=== PATIENT | female | born 1985 | race Caucasian/White ===

== ENCOUNTER 2017-01-31 14:26 | Emergency (ER) | payer SELFPAY ==
[~2017-01-31] VITALS: Ht 165.1 cm; Wt 50.0 kg
[~2017-01-31 14:26] MED LIST: CIPR500T4 PO
[2017-01-31 14:35] VITALS: BP 103/79; PULSE 78; RESP 18; TEMP 98.2; O2SAT 100
[2017-01-31] MEDS ORDERED: HYDR-3533 PO (14:47)
--- NOTE | 2017-01-31 14:52 | PD ---
HPI Chief Complaint: Dizziness Time Seen by Provider: 14:40 Travel History International Travel<30 days: No Contact w/Intl Traveler<30days: No Traveled to known affect area: No History of Present Illness HPI This 31-year-old female is complaining of lower abdominal pain. She's had some vaginal discharge and pain with urination. Her last period was January 09. She has been 4 times and has 4 children PFSH Past Medical History Anxiety: Yes (panick attacks) Depression: Yes Cancer: No Cardiovascular Problems: No Diminished Hearing: No Endocrine: No Gastrointestinal Disorders: No Genitourinary: No Immune Disorder: No Implanted Vascular Access Dvce: No Musculoskeletal: No Neurologic: No Psychiatric: Yes Reproductive: No Respiratory: No Immunizations Current: Yes ?: Unknown : 4 Para: 4 Miscarriage: 1 Past Surgical History Tonsillectomy: Yes Other Surgery: No Social History Alcohol Use: Yes (1-2 wk) Tobacco Use: Yes (1 ppd) Substance Use: No Allergies-Medications (Allergen,Severity, Reaction): Coded Allergies: Morphine (Verified Allergy, Severe, Rash, 01/31/17) Reported Meds & Prescriptions Reported Meds & Active Scripts Active Reported Lortab (Hydrocodone-Acetaminophen) 5-325 Mg Tab 0.25 Tab PO DAILY Review of Systems General / Constitutional: No: Fever, Chills Eyes: No: Diploplia, Blurred Vision HENT: No: Headaches, Vertigo Cardiovascular: No: Chest Pain or Discomfort, Palpitations Respiratory: No: Cough, Shortness of Breath Gastrointestinal: Positive: Nausea Genitourinary: Positive: Frequency, Dysuria Musculoskeletal: No: Myalgias Skin: No Rash Neurologic: No: Weakness Physical Exam Narrative GENERAL: Well-developed female SKIN: Focused skin assessment warm/dry. HEAD: Atraumatic. Normocephalic. EYES: Pupils equal and round. No scleral icterus. No injection or drainage. ENT: No nasal bleeding or discharge. Mucous membranes pink and moist. NECK: Trachea midline. No JVD. CARDIOVASCULAR: Regular rate and rhythm. No murmur appreciated. RESPIRATORY: No accessory muscle use. Clear to auscultation. Breath sounds equal bilaterally. GASTROINTESTINAL: Abdomen soft, non-tender, nondistended. Hepatic and splenic margins not palpable. Pelvic: There is some slight whitish discharge. There is pain with movement of the cervix. There are no adnexal masses MUSCULOSKELETAL: No obvious deformities. No clubbing. No cyanosis. No edema. NEUROLOGICAL: Awake and alert. No obvious cranial nerve deficits. Motor grossly within normal limits. Normal speech. PSYCHIATRIC: Appropriate mood and affect; insight and judgment normal. Data Data Last Documented VS Vital Signs Date Time Temp Pulse Resp B/P Pulse Ox O2 Delivery O2 Flow Rate FiO2 01/31/17 14:35 98.2 78 18 103/79 100 Orders Gc And Chlamydia Pcr (01/31/17 14:48) Wet Prep Profile (01/31/17 14:48) Urinalysis - C+S If Indicated (01/31/17 14:48) Ed Urine Pregnancytest Poc (01/31/17 14:48) Azithromycin Powd Pack (Zithromax Powd P (01/31/17 15:45) Rocephin 250mg Vial Im X 1 (01/31/17 15:45) Lidocaine 1% Inj (50 Ml) (Xylocaine 1% I (01/31/17 15:45) Labs Laboratory Tests Test 01/31/17 01/31/17 14:50 15:00 Urine Color YELLOW Urine Turbidity CLEAR Urine pH 5.5 Urine Specific [place] 1.029 Urine Protein TRACE mg/dL Urine Glucose (UA) NEG mg/dL Urine Ketones TRACE mg/dL Urine Occult Blood NEG Urine Nitrite POS Urine Bilirubin NEG Urine Leukocyte Esterase TRACE Urine WBC 6-8 /hpf Urine Squamous Epithelial > 8 /hpf Cells Urine Bacteria RARE /hpf Urine Mucus MANY /lpf Microscopic Urinalysis Comment CULT NOT INDICATED Clue Cells (Wet Prep) NONE SEEN Vaginal Trichomonas (Wet Prep) NONE SEEN Vaginal Yeast (Wet Prep) NONE SEEN MDM Medical Decision Making Medical Screen Exam Complete: Yes Emergency Medical Condition: Yes Medical Record Reviewed: Yes Differential Diagnosis Differential includes , UTI, cervicitis Narrative Course test is negative. Urine is equivocal for UTI. She'll be given Rocephin and Zithromax for cervicitis Diagnosis Primary Impression: Cervicitis Disposition: 01 DISCHARGE HOME Condition: Stable Ollie Ortez MD Jan 31, 2017 14:52
[2017-01-31 15:23] LABS: BLOOD, URINE NEG (NEG); GLUCOSE,URINE NEG (NEG); KETONE, URINE TRACE mg/dL (NEG); PH, URINE 5.5 (5.0-8.5)
[2017-01-31 15:28] LABS: NITRITE,URINE POS (NEG)
[2017-01-31 15:30] LABS: MUCUS URINE MANY /lpf (OCC); SQUAMOUS EPITHELIAL CELL URINE > 8 /hpf (0-5); URINE COLOR YELLOW (YELLW/STRAW)
[2017-01-31 15:31] LABS: BACTERIA, URINE RARE /hpf; COMMENT (UR) CULT NOT INDICATED; CULTURE IF INDICATED CULT NOT INDICATED
[2017-01-31] MEDS ORDERED: AZITHROMYCIN PWD FOR SUSP 1 GM PACKET PO ONE (15:45)
[2017-01-31] MEDS ORDERED: LEVOFLOXACIN 500 MG TAB PO ONE (15:45)
[2017-01-31] MEDS ORDERED: cefTRIAXone 250 MG VIAL IM ONE (15:45)
[2017-01-31] MEDS ORDERED: LIDOCAINE HCL 1% 50 ML VIAL IM ONE (15:45)
[2017-01-31 18:55] LABS: CHLAMYDIA PCR NOT DETECTED (NOT DETECT); NEISSERIA PCR NOT DETECTED (NOT DETECT)
== END 2017-01-31 17:02 | disposition home or self-care (01) ==
LOC: PHED 14:26
DX: N72 Inflammatory disease of cervix uteri (principal); F41.9 Anxiety disorder, unspecified; F17.210 Nicotine dependence, cigarettes, uncomplicated
CPT/HCPCS: 81001; 84703; 87210; 87491; 87591; 99284

== ENCOUNTER 2017-04-06 11:44 | Emergency (ER) | payer SELFPAY ==
[~2017-04-06] VITALS: Ht 165.1 cm; Wt 51.0 kg
[~2017-04-06 11:44] MED LIST changes: -CIPR500T4 PO; +HYDR-3533 PO
[2017-04-06 11:56] VITALS: BP 114/72; PULSE 86; RESP 24; TEMP 97.6; O2SAT 100
[2017-04-06 12:10] VITALS: BP 127/85; PULSE 93; RESP 16; O2SAT 100
[2017-04-06] MEDS ORDERED: ORPHENADRINE INJ 60 MG/2 ML AMP IM ONE (12:30)
[2017-04-06] MEDS ORDERED: KETOROLAC TROMETHAMINE 60 MG/2 ML (IM) VIAL IM ONE (12:30)
[2017-04-06] MEDS ORDERED: IBUPROFEN 800 MG TAB PO ONE (12:45)
[2017-04-06] MEDS ORDERED: METHOCARBAMOL 500 MG TAB PO ONE (12:45)
[2017-04-06] MEDS ORDERED: ACETAMINOPHEN 325 MG TAB PO ONE (12:45)
--- NOTE | 2017-04-06 12:50 | PD ---
HPI Chief Complaint: Back/ Neck Pain or Injury Time Seen by Provider: 12:46 Travel History International Travel<30 days: No Contact w/Intl Traveler<30days: No Traveled to known affect area: No History of Present Illness HPI 31-year-old female that presents to the ED for evaluation of acute left-sided back pain. Patient came here by ambulance for evaluation of this. Patient reports that she was sitting and she was getting up twisting to her right side when the pain started. She denies any chest pain. She states that he hurts to breathe. Per patient and gets better when she is 5. Per patient she has no injuries. She does have a history of substance abuse and states that she was nonnarcotics. Per patient pain is 8 out of 10. She denies any numbness, tilling, weakness. No urinary symptoms. No possibility of . Allergies to morphine. She denies any cough or runny nose. No bleeding of any kind. No vaginal discharge for . Pain stays mainly on the left upper back. PFSH Past Medical History Anxiety: Yes (panick attacks) Depression: Yes Cancer: No Cardiovascular Problems: No Diminished Hearing: No Endocrine: No Gastrointestinal Disorders: No Genitourinary: No Immune Disorder: No Implanted Vascular Access Dvce: No Musculoskeletal: Yes (CHRONIC BACK PAIN) Neurologic: No Psychiatric: Yes Reproductive: No Respiratory: No Immunizations Current: Yes Influenza Vaccination: No ?: Not LMP: 03/15/2017 : 4 Para: 3 Miscarriage: 1 Past Surgical History Tonsillectomy: Yes Other Surgery: No Social History Alcohol Use: Yes (1-2 wk) Tobacco Use: Yes (1/2 PPD) Substance Use: Yes (LORTABS) Allergies-Medications (Allergen,Severity, Reaction): Coded Allergies: Morphine (Verified Allergy, Severe, Rash, 04/06/17) Reported Meds & Prescriptions Reported Meds & Active Scripts Active Robaxin (Methocarbamol) 750 Mg Tab 750 Mg PO QID PRN Diclofenac Sodium DR (Diclofenac Sodium) 75 Mg Tabdr 75 Mg PO BID PRN Review of Systems Except as stated in HPI: all other systems reviewed are Neg Physical Exam Narrative GENERAL: SKIN: Warm and dry. HEAD: Atraumatic. Normocephalic. EYES: Pupils equal and round. No scleral icterus. No injection or drainage. ENT: No nasal bleeding or discharge. Mucous membranes pink and moist. Tongue is midline. No uvula deviation. NECK: Trachea midline. No JVD. CARDIOVASCULAR: Regular rate and rhythm. No murmurs, S3, S4. RESPIRATORY: No accessory muscle use. Clear to auscultation. Breath sounds equal bilaterally. GASTROINTESTINAL: Abdomen soft, non-tender, nondistended. Hepatic and splenic margins not palpable. MUSCULOSKELETAL: Extremities without clubbing, cyanosis, or edema. No obvious deformities. Full range of motion of the upper and lower extremities bilaterally. 2+ pulses bilaterally. Patient is very sensitive to touch around the left upper back around the CVA area. No obvious ecchymosis or deformity noted. Very tender to touch in this area and cannot rule out CVA tenderness. NEUROLOGICAL: Awake and alert. No obvious cranial nerve deficits. Motor grossly within normal limits. Five out of 5 muscle strength in the arms and legs. Normal speech. PSYCHIATRIC: Appropriate mood and affect; insight and judgment normal. Data Data Last Documented VS Vital Signs Date Time Temp Pulse Resp B/P Pulse Ox O2 Delivery O2 Flow Rate FiO2 04/06/17 12:10 93 16 127/85 100 Room Air 04/06/17 11:56 97.6 Orders Urinalysis - C+S If Indicated (04/06/17 12:21) Chest, Single Ap (04/06/17 12:21) Ed Urine Pregnancytest Poc (04/06/17 12:21) Ketorolac Inj (Toradol Inj) (04/06/17 12:30) Orphenadrine Inj (Norflex Inj) (04/06/17 12:30) Acetaminophen (Tylenol) (04/06/17 12:45) Ibuprofen (Motrin) (04/06/17 12:45) Methocarbamol (Robaxin) (04/06/17 12:45) Ct Abd/Pel W/O Iv Contrast (04/06/17 ) Labs Laboratory Tests Test 04/06/17 12:37 Urine Color YELLOW Urine Turbidity HAZY Urine pH 7.5 Urine Specific [place] 1.023 Urine Protein TRACE mg/dL Urine Glucose (UA) NEG mg/dL Urine Ketones NEG mg/dL Urine Occult Blood NEG Urine Nitrite NEG Urine Bilirubin NEG Urine Urobilinogen LESS THAN 2.0 MG/DL Urine Leukocyte Esterase NEG Urine RBC 3 /hpf Urine WBC 2 /hpf Urine Squamous Epithelial 2 /hpf Cells Urine Bacteria FEW /hpf Urine Mucus FEW /lpf Microscopic Urinalysis Comment CULT NOT INDICATED MDM Medical Decision Making Medical Screen Exam Complete: Yes Emergency Medical Condition: Yes Medical Record Reviewed: Yes Interpretation(s) Last Impressions Chest X-Ray 04/06/17 1221 Signed Impressions: Service Date/Time: Thursday, April 06, 2017 12:31 - CONCLUSION: No acute cardiopulmonary abnormality is identified. Jarred Etienne MD CT negative for acute disease, small kidney stone on right, normal appendix and endometrial air of unclear etiology. Differential Diagnosis UTI versus pneumothorax versus pneumonia versus costochondritis versus muscle strain versus muscle spasm versus kidney stone versus polynephritis Narrative Course 31-year-old female that presents to the ED for evaluation of left upper back pain. Patient was properly examined and was found to have signs and symptoms which appeared to be more consistent with muscle skeletal pain. However patient has pain in her CVA area and cannot completely rule out kidney disease x -ray to the abrupt onset of symptoms. Recommendations for UA and x-ray. Patient adamant that she does not want any narcotics. She will be given ibuprofen and Robaxin after she also requested no injections. UA and chest x- ray ordered. This showed negative. Patient feels somewhat improved but still very tender on the left CVA. Concern for kidney stone. CT without contrast was done and did not show any sign of kidney stone. He did show some nonspecific findings including air on the pelvic area. Patient has no pain on the pelvic region. Recommend close follow with PCP. This time I believe this is likely muscle skeletal. Patient was treated with Robaxin and diclofenac sodium. Follow up with PCP. See ED for worsening symptoms. Diagnosis Primary Impression: Muscle strain Patient Instructions: General Instructions Additional Instructions: Take medications as prescribed. Follow-up with PCP. See ED for any worsening symptoms. Do not drink or drive while taking muscle relaxant medication. Apply ice or heat as needed for pain Med/Other Pt SpecificInfo: Prescription(s) given Scripts Methocarbamol (Robaxin)750 Mg [id number] Mg PO QID PRN (PAIN SCALE 1 TO 10) #20 TAB Prov:Nii Steele MD 04/06/[address] 75 Mg Tabdr75 Mg PO BID PRN (PAIN SCALE 1 TO 10) #20 TAB Prov:Nii Steele MD 04/06/17 Disposition: 01 DISCHARGE HOME Condition: Stable [place] Boss Apr 06, 2017 12:50
[2017-04-06 13:00] LABS: BACTERIA, URINE FEW /hpf; BLOOD, URINE NEG (NEG); COMMENT (UR) CULT NOT INDICATED; CULTURE IF INDICATED CULT NOT INDICATED; GLUCOSE,URINE NEG (NEG); KETONE, URINE NEG (NEG); MUCUS URINE FEW /lpf (OCC); NITRITE,URINE NEG (NEG); PH, URINE 7.5 (5.0-8.5); SQUAMOUS EPITHELIAL CELL URINE 2 /hpf (0-5); URINE COLOR YELLOW (YELLW/STRAW)
--- NOTE | 2017-04-06 13:05 | RADRPT ---
EXAM DATE/TIME: 04/06/2017 12:31 [facility] COMPARISON: No previous studies available for comparison. INDICATIONS : Severe chest pain since am. MEDICAL HISTORY : None. SURGICAL HISTORY : None. ENCOUNTER: Initial ACUITY: 1 day PAIN SCORE: 10/10 LOCATION: Bilateral upper and posterior FINDINGS: Portable AP view of the chest demonstrates a normal-sized cardiac silhouette. No effusion, consolidat ion, or pneumothorax is visualized. The bones and soft tissues demonstrate no acute abnormality. CONCLUSION: No acute cardiopulmonary abnormality is identified. Jarred Etienne MD on April 06, 2017 at 13:02 Board Certified Radiologist. This report was verified electronically.
[2017-04-06] MEDS ORDERED: DICL75TA PO (13:26)
[2017-04-06] MEDS ORDERED: ROBA750T PO (13:26)
--- NOTE | 2017-04-06 15:45 | RADRPT ---
EXAM DATE/TIME: 04/06/2017 15:25 [facility] COMPARISON: No previous studies available for comparison. INDICATIONS : Left flank pain. ORAL CONTRAST: No oral contrast ingested. RADIATION DOSE: 3.49 CTDIvol (mGy) MEDICAL HISTORY : None SURGICAL HISTORY : None. ENCOUNTER: Initial ACUITY: 1 day PAIN SCALE: 5/10 LOCATION: Left flank TECHNIQUE: Volumetric scanning of the abdomen and pelvis was performed. Using automated exposure control and adjustment of the mA and/or kV according to patient size, radiation dose was kept as low as reasonably achievable to obtain optimal diagnostic quality images. FINDINGS: LOWER LUNGS: The visualized lower lungs are clear. LIVER: Homogeneous density without lesion. There is no dilation of the biliary tree. No calcifi ed gallstones. SPLEEN: Normal size without lesion. PANCREAS: Within normal limits. KIDNEYS: Punctate cavitation in the mid right kidney consistent with calyceal calculus. Otherwise , kidneys are symmetrical in size without evidence for hydronephrosis. Specifically, no radiopaque re nal calculi in the left. Left ureter is normal in caliber. No evidence for radiopaque renal calculi a long the course of the ureters. ADRENAL GLANDS: Within normal limits. VASCULAR: There is no aortic aneurysm. BOWEL/MESENTERY: Appendix is visualized and normal in appearance. Bowel is grossly unremarkable. ABDOMINAL WALL: Within normal limits. RETROPERITONEUM: No significant adenopathy. BLADDER: No wall thickening or mass. REPRODUCTIVE: Moderate amount of air in the endometrial canal. Uterus and adnexa are otherwise un remarkable for age. INGUINAL: There is no lymphadenopathy or hernia. MUSCULOSKELETAL: Within normal limits for patient age. CONCLUSION: 1. Punctate right calyceal calculus. No evidence for left sided radiopaque renal calculi or obstructi ve uropathy. 2. Normal appendix. 3. Moderate amount of air in the endometrial canal. Clinical correlation is recommended. Ciro Prather MD on April 06, 2017 at 15:37 Board Certified Radiologist. This report was verified electronically.
== END 2017-04-06 17:07 | disposition home or self-care (01) ==
LOC: NEPD 11:44
DX: T14.8 Other injury of unspecified body region (principal); X50.1XXA Overexertion from prolonged static or awkward postures, initial encounter
CPT/HCPCS: 71010; 74176; 81001; 84703; 99285